=== PATIENT | female | born 1935 | race Hispanic/Latino ===

== ENCOUNTER 2020-03-24 07:52 | Inpatient (IN) | payer OTHER ==
[~2020-03-24] VITALS: Ht 160 cm; Wt 52.3 kg
[~2020-03-24 07:52] MED LIST: METF-444 PO
[2020-03-24 09:42] LABS: BASOPHILS % (AUTO) 0.4 % (0.0-5.0); EOSINOPHILS % (AUTO) 0.1 % (0.0-8.0); HEMATOCRIT 37.7 % (36-48); MEAN CORPUSCULAR HEMOGLOBIN 27.8 pg (27.0-33.0); MEAN CORPUSCULAR HGB CONC 32.6 g/dL (32.0-36.0); MEAN CORPUSCULAR VOLUME 85.1 fL (79-99); MONOCYTES % (AUTO) 11.6 % (3.0-13.0); NEUTROPHILS % (AUTO) 73.9 % (40.0-77.0); PLATELET COUNT (AUTO) 235 K/uL (130-400); RED BLOOD CELL COUNT(AUTO) 4.43 MIL/uL (4.00-5.50); RED CELL DISTRIBUTION WIDTH 13.4 % (11.0-15.5); WHITE BLOOD COUNT (AUTO) 7.3 K/uL (4.8-10.8)
[2020-03-24 09:56] LABS: INR 0.91 (0.85-1.15); PROTHROMBIN TIME 9.9 SEC (9.6-11.6)
[2020-03-24 09:59] LABS: ALBUMIN 2.9 g/dL (3.5-5.0); BILIRUBIN,TOTAL 0.4 mg/dL (0.2-1.0); CREATININE 0.8 mg/dL (0.5-1.5); POTASSIUM 4.3 mmol/L (3.5-5.1); TOTAL PROTEIN, SERUM 6.7 g/dL (6.0-8.3)
[2020-03-24 10:00] LABS: LACTATE DEHYDROGENASE 437 U/L (81-234)
[2020-03-24 10:15] LABS: B-TYPE NATRIURETIC PEPTIDE 31 pg/mL (0-100)
[2020-03-24 10:25] LABS: APPEARANCE,URINE Clear (CLEAR); BILIRUBIN,URINE Negative (NEGATIVE); COLOR,URINE Yellow (YELLOW); GLUCOSE, URINE (UA) Negative (NEGATIVE); KETONES,URINE 15 mg/dL (NEGATIVE); LEUKOCYTE ESTERASE ,URINE Negative (NEGATIVE); NITRATE,URINE Negative (NEGATIVE); OCCULT BLOOD,URINE Negative (NEGATIVE); PROTEIN,URINE Trace mg/dL (NEGATIVE); UROBILINOGEN,URINE 0.2 mg/dL (0.2-1.0)
[2020-03-24 10:30] LABS: BACTERIA,URINE Rare /HPF (None Seen); RBC,URINE 0-1 /HPF (0-1); SQUAMOUS EPITHELIAL CELL,UR Rare /HPF (0-2)
[2020-03-24 11:03] LABS: FERRITIN 391 ng/mL (15-150)
[2020-03-24] MEDS ORDERED: IOHEXOL 350 MG/ML 100ML INFUS..BTL IV ONE (12:03)
[2020-03-24] MEDS ORDERED: NITROGLYCERIN 0.4 MG SL TAB SL PRN (17:45)
[2020-03-24] MEDS ORDERED: ERGOCALCIFEROL (VITAMIN D2) 50,000 UNIT CAPSULE PO ONE (17:45)
[2020-03-24] MEDS ORDERED: LACTULOSE 20 GM/30 ML UDCUP PO PRN (17:45)
[2020-03-24] MEDS ORDERED: MAG HYDROX/AL HYDROX/SIMETH ES 30 ML SUSP UDCUP PO PRN (17:45)
[2020-03-24] MEDS ORDERED: ALBUTEROL SULFATE 0.083% 2.5 MG/3 ML INH IH PRN (17:45)
[2020-03-24] MEDS ORDERED: ONDANSETRON HCL 4 MG/2 ML VIAL IV PRN (17:45)
[2020-03-24] MEDS ORDERED: HYDRALAZINE HCL 20 MG/ML VIAL IV PRN (17:45)
[2020-03-24] MEDS: CEFTRIAXONE SODIUM 1 GM IVP SCH (17:45)
[2020-03-24] MEDS ORDERED: ACETAMINOPHEN 325 MG TAB PO PRN (17:45)
[2020-03-24] MEDS ORDERED: DiphenhydrAMINE HCL 50 MG/ML VIAL IV PRN (17:45)
[2020-03-24] MEDS ORDERED: GLUCAGON 1MG KIT 1 MG ML IM PRN (19:15)
[2020-03-24] MEDS ORDERED: DEXTROSE 50%-WATER 50 ML DISP.SYRIN IV PRN (19:15)
[2020-03-24] MEDS ORDERED: ERGOCALCIFEROL (VITAMIN D2) 50,000 UNIT CAPSULE ONE (20:51)
[2020-03-24] MEDS ORDERED: ENOXAPARIN SODIUM 40 MG/0.4 ML SYRINGE SQ ONE (20:51)
[2020-03-24] MEDS ORDERED: CEFTRIAXONE SODIUM 1 GM ONE (20:51)
[2020-03-24] MEDS ORDERED: DOXYCYCLINE HYCLATE 100 MG TABLET PO ONE (20:51)
[2020-03-24] MEDS ORDERED: DEXAMETHASONE SOD PHOSPHATE 4 MG/ML 1ML VIAL ONE (20:51)
[2020-03-24] MEDS: ENOXAPARIN SODIUM 40 MG/0.4 ML SYRINGE SQ SCH (21:00)
[2020-03-24] MEDS: INSULIN HUMULIN R 100 UNIT/ML 3ML SQ SCH (21:00)
[2020-03-24] MEDS: ACETYLCYSTEINE 600 MG CAPSULE PO SCH (21:00)
[2020-03-24] MEDS: DEXAMETHASONE SOD PHOSPHATE 4 MG/ML 1ML VIAL IVP SCH (21:00)
[2020-03-24] MEDS: DOXYCYCLINE HYCLATE 100 MG TABLET PO SCH (21:00)
[2020-03-25] VITALS (7 sets, daily range): BP systolic 119–142; BP diastolic 56–68
[2020-03-25 04:18] LABS: BASOPHILS % (AUTO) 0.2 % (0.0-5.0); HEMATOCRIT 36.9 % (36-48); LYMPHOCYTES % (AUTO) 10.3 % (21.0-51.0); MEAN CORPUSCULAR HEMOGLOBIN 27.6 pg (27.0-33.0); MEAN CORPUSCULAR HGB CONC 32.5 g/dL (32.0-36.0); NEUTROPHILS % (AUTO) 82.2 % (40.0-77.0); PLATELET COUNT (AUTO) 241 K/uL (130-400); RED BLOOD CELL COUNT(AUTO) 4.34 MIL/uL (4.00-5.50); RED CELL DISTRIBUTION WIDTH 13.5 % (11.0-15.5); WHITE BLOOD COUNT (AUTO) 6.3 K/uL (4.8-10.8)
[2020-03-25 04:28] LABS: HEMOGLOBIN A1C 6.8 % (4.0-6.0)
[2020-03-25 04:46] LABS: ALANINE AMINOTRANSFERASE 27 U/L (12-78); ALBUMIN 2.4 g/dL (3.5-5.0); ASPARTATE AMINOTRANSFERASE 36 U/L (10-37); BILIRUBIN,TOTAL 0.2 mg/dL (0.2-1.0); CARBON DIOXIDE 27 mmol/L (21-32); CHLORIDE 103 mmol/L (101-111); CREATININE 0.8 mg/dL (0.5-1.5); GLOMERULAR FILTR. RATE CALC 73 mL/min (>60); GLUCOSE,RANDOM 212 mg/dL (70-105); LACTATE DEHYDROGENASE 373 U/L (81-234); POTASSIUM 4.5 mmol/L (3.5-5.1); SODIUM SERUM 136 mmol/L (136-145); TOTAL PROTEIN, SERUM 6.5 g/dL (6.0-8.3); UREA NITROGEN, BLOOD 13 mg/dL (7-18)
[2020-03-25] MEDS: CEFTRIAXONE SODIUM 1 GM IVP SCH ×2 (05:43→21:01)
[2020-03-25] MEDS: INSULIN HUMULIN R 100 UNIT/ML 3ML SQ SCH ×4 (05:44→21:04)
[2020-03-25] MEDS: DEXAMETHASONE SOD PHOSPHATE 4 MG/ML 1ML VIAL IVP SCH ×3 (09:27→21:02)
[2020-03-25] MEDS: ASCORBIC ACID 500 MG TAB PO SCH (09:28)
[2020-03-25] MEDS: ZINC SULFATE 220 CAPSULE PO SCH (09:28)
[2020-03-25] MEDS: DOXYCYCLINE HYCLATE 100 MG TABLET PO SCH ×2 (09:28→21:02)
[2020-03-25] MEDS: ACETYLCYSTEINE 600 MG CAPSULE PO SCH ×2 (09:28→21:02)
[2020-03-25] MEDS: ENOXAPARIN SODIUM 40 MG/0.4 ML SYRINGE SQ SCH ×2 (09:29→21:01)
--- NOTE | 2020-03-25 18:05 | NUR ---
NOTE PATIENT REMAINED STABLE THROUGHOUT THE DAY. NO DISTRESS. SHE IS STILL ON O2@3LNC. NO COUGH OR PHLEGM. SOB WITH EXERTION AND WITH CHEST PRESSURE WHEN THAT HAPPENS. SHE TESTED POSITIVE ON RAPID TEST OUTPATIENT. RESULTS FAXED FROM [facility]. PLASMA ORDERED PER DR PRATER BUT STILL WAITING ON CODE FROM [facility] TO RELEASE PLASMA WHEN AVAILABLE.
--- NOTE | 2020-03-25 18:26 | NUR ---
INITIAL SW spoke with daughter in law, Meagan Belcher. Patient lives alone. She used to live with a brother but he on 03/23/2020 after being in hospice. Patient has no home services. DME: hospital bed. Patient is able to complete ADL's and drives. PCP is Dr. Bassam Gil. Pharmacy is [facility]. DCP is home. Addendum: 03/25/20 at 1827 by ANA SAVAGE SS Amended: Links added.
[2020-03-26 03:49] VITALS: BP 142/68
[2020-03-26 05:19] LABS: BASOPHILS % (AUTO) 0.1 % (0.0-5.0); HEMATOCRIT 34.4 % (36-48); LYMPHOCYTES % (AUTO) 8.6 % (21.0-51.0); MEAN CORPUSCULAR HEMOGLOBIN 27.1 pg (27.0-33.0); MEAN CORPUSCULAR HGB CONC 32.3 g/dL (32.0-36.0); MEAN CORPUSCULAR VOLUME 83.9 fL (79-99); MONOCYTES % (AUTO) 7.2 % (3.0-13.0); NEUTROPHILS % (AUTO) 82.7 % (40.0-77.0); PLATELET COUNT (AUTO) 301 K/uL (130-400); RED CELL DISTRIBUTION WIDTH 13.4 % (11.0-15.5); WHITE BLOOD COUNT (AUTO) 13.9 K/uL (4.8-10.8)
[2020-03-26 05:37] LABS: BILIRUBIN,TOTAL 0.2 mg/dL (0.2-1.0); CHLORIDE 105 mmol/L (101-111); SODIUM SERUM 138 mmol/L (136-145)
[2020-03-26 05:45] LABS: ALANINE AMINOTRANSFERASE 22 U/L (12-78); ALBUMIN 2.4 g/dL (3.5-5.0); ASPARTATE AMINOTRANSFERASE 23 U/L (10-37); CARBON DIOXIDE 25 mmol/L (21-32); CREATININE 0.8 mg/dL (0.5-1.5); GLOMERULAR FILTR. RATE CALC 73 mL/min (>60); GLUCOSE,RANDOM 148 mg/dL (70-105); LACTATE DEHYDROGENASE 315 U/L (81-234); POTASSIUM 4.4 mmol/L (3.5-5.1); TOTAL PROTEIN, SERUM 6.2 g/dL (6.0-8.3); UREA NITROGEN, BLOOD 24 mg/dL (7-18)
[2020-03-26] MEDS: DEXAMETHASONE SOD PHOSPHATE 4 MG/ML 1ML VIAL IVP SCH ×3 (05:49→21:30)
[2020-03-26] MEDS: INSULIN HUMULIN R 100 UNIT/ML 3ML SQ SCH ×4 (05:49→21:33)
[2020-03-26 08:00] VITALS: BP 129/66
[2020-03-26] MEDS: ACETYLCYSTEINE 600 MG CAPSULE PO SCH ×2 (08:17→21:29)
[2020-03-26] MEDS: ENOXAPARIN SODIUM 40 MG/0.4 ML SYRINGE SQ SCH ×2 (08:17→21:30)
[2020-03-26] MEDS: ASCORBIC ACID 500 MG TAB PO SCH (08:17)
[2020-03-26] MEDS: DOXYCYCLINE HYCLATE 100 MG TABLET PO SCH ×2 (08:17→21:29)
[2020-03-26] MEDS: ZINC SULFATE 220 CAPSULE PO SCH (08:17)
[2020-03-26] MEDS: CEFTRIAXONE SODIUM 1 GM IVP SCH ×2 (08:17→21:29)
[2020-03-26 12:00] VITALS: BP 132/60
[2020-03-26 16:00] VITALS: BP 115/64
[2020-03-26 21:37] VITALS: BP 134/56
[2020-03-27 01:02] VITALS: BP 136/85
--- NOTE | 2020-03-27 04:39 | NUR ---
PT STABLE THROUGHOUT SHIFTS, VITALS REMAINED WITHIN NORMAL LIMITS, PT CONTINUES TO BE ON 3 LITERS OF OXYGEN. PT SWABBED PER ORDER, MEDS GIVEN PER SCHEDULE.
[2020-03-27 04:49] VITALS: BP 130/82
[2020-03-27] MEDS: INSULIN HUMULIN R 100 UNIT/ML 3ML SQ SCH ×4 (06:14→20:52)
[2020-03-27] MEDS: DEXAMETHASONE SOD PHOSPHATE 4 MG/ML 1ML VIAL IVP SCH ×3 (06:14→20:43)
[2020-03-27 07:02] LABS: BASOPHILS % (AUTO) 0.2 % (0.0-5.0); HEMATOCRIT 36.3 % (36-48); LYMPHOCYTES % (AUTO) 7.3 % (21.0-51.0); MEAN CORPUSCULAR HEMOGLOBIN 27.2 pg (27.0-33.0); MEAN CORPUSCULAR HGB CONC 32.2 g/dL (32.0-36.0); MEAN CORPUSCULAR VOLUME 84.4 fL (79-99); MONOCYTES % (AUTO) 5.6 % (3.0-13.0); NEUTROPHILS % (AUTO) 85.4 % (40.0-77.0); PLATELET COUNT (AUTO) 362 K/uL (130-400); RED CELL DISTRIBUTION WIDTH 13.5 % (11.0-15.5); WHITE BLOOD COUNT (AUTO) 18.9 K/uL (4.8-10.8)
[2020-03-27 07:42] LABS: ALANINE AMINOTRANSFERASE 29 U/L (12-78); ALBUMIN 2.5 g/dL (3.5-5.0); ASPARTATE AMINOTRANSFERASE 30 U/L (10-37); BILIRUBIN,TOTAL 0.3 mg/dL (0.2-1.0); CARBON DIOXIDE 26 mmol/L (21-32); CHLORIDE 108 mmol/L (101-111); CREATININE 0.8 mg/dL (0.5-1.5); GLOMERULAR FILTR. RATE CALC 73 mL/min (>60); GLUCOSE,RANDOM 171 mg/dL (70-105); LACTATE DEHYDROGENASE 303 U/L (81-234); POTASSIUM 4.3 mmol/L (3.5-5.1); SODIUM SERUM 142 mmol/L (136-145); TOTAL PROTEIN, SERUM 6.1 g/dL (6.0-8.3); UREA NITROGEN, BLOOD 27 mg/dL (7-18)
[2020-03-27] MEDS: ACETYLCYSTEINE 600 MG CAPSULE PO SCH ×2 (07:55→20:44)
[2020-03-27] MEDS: ZINC SULFATE 220 CAPSULE PO SCH (07:55)
[2020-03-27] MEDS: ASCORBIC ACID 500 MG TAB PO SCH (07:55)
[2020-03-27] MEDS: CEFTRIAXONE SODIUM 1 GM IVP SCH ×2 (07:55→20:43)
[2020-03-27] MEDS: DOXYCYCLINE HYCLATE 100 MG TABLET PO SCH ×2 (07:55→20:44)
[2020-03-27] MEDS: ENOXAPARIN SODIUM 40 MG/0.4 ML SYRINGE SQ SCH ×2 (07:57→20:45)
[2020-03-27 08:00] VITALS: BP 137/54
[2020-03-27 12:00] VITALS: BP 142/65
--- NOTE | 2020-03-27 12:44 | NUR ---
Pt is sitting on the side of the bed eating lunch. She was asked if she needed anything & her response was nothing. She says that she feels great. Even better than this morning. Her vitals are stable. She is being closely monitored
[2020-03-27 16:00] VITALS: BP 128/70
--- NOTE | 2020-03-27 18:50 | NUR ---
SPOKE WITH RT, AT THIS TIME PT DOES QUALIFY FOR HOME OXYGEN.
[2020-03-27 19:30] VITALS: BP 149/68
[2020-03-28] VITALS: BP 144/57
[2020-03-28 04:00] VITALS: BP 145/69
[2020-03-28] MEDS: INSULIN HUMULIN R 100 UNIT/ML 3ML SQ SCH ×4 (05:53→19:54)
[2020-03-28] MEDS: DEXAMETHASONE SOD PHOSPHATE 4 MG/ML 1ML VIAL IVP SCH ×3 (06:08→19:43)
--- NOTE | 2020-03-28 06:09 | NUR ---
Assessment Patient was just rounded on and she stated that she feels fine. She does not need anything. She has been given her O2 extension which she is super excited about. Vitals are stable & she is being closely monitored.
[2020-03-28 08:00] VITALS: BP 143/68
[2020-03-28] MEDS: ACETYLCYSTEINE 600 MG CAPSULE PO SCH ×2 (08:40→19:43)
[2020-03-28] MEDS: ZINC SULFATE 220 CAPSULE PO SCH (08:40)
[2020-03-28] MEDS: DOXYCYCLINE HYCLATE 100 MG TABLET PO SCH ×2 (08:40→19:43)
[2020-03-28] MEDS: ASCORBIC ACID 500 MG TAB PO SCH (08:40)
[2020-03-28] MEDS: ENOXAPARIN SODIUM 40 MG/0.4 ML SYRINGE SQ SCH ×2 (08:40→19:43)
[2020-03-28] MEDS: CEFTRIAXONE SODIUM 1 GM IVP SCH ×2 (08:40→19:43)
[2020-03-28 11:23] LABS: BASOPHILS % (AUTO) 0.3 % (0.0-5.0); HEMATOCRIT 37.8 % (36-48); LYMPHOCYTES % (AUTO) 6.2 % (21.0-51.0); MEAN CORPUSCULAR HEMOGLOBIN 27.3 pg (27.0-33.0); MEAN CORPUSCULAR VOLUME 85.3 fL (79-99); MONOCYTES % (AUTO) 6.3 % (3.0-13.0); NEUTROPHILS % (AUTO) 83.9 % (40.0-77.0); PLATELET COUNT (AUTO) 379 K/uL (130-400); RED BLOOD CELL COUNT(AUTO) 4.43 MIL/uL (4.00-5.50); RED CELL DISTRIBUTION WIDTH 13.4 % (11.0-15.5); WHITE BLOOD COUNT (AUTO) 16.5 K/uL (4.8-10.8)
[2020-03-28 11:34] LABS: POTASSIUM 4.1 mmol/L (3.5-5.1)
[2020-03-28 12:00] VITALS: BP 144/74
[2020-03-28 16:00] VITALS: BP 148/78
--- NOTE | 2020-03-28 17:42 | NUR ---
RT EVALUATED THE PT GOING TO THE BATHROOM AND BACK CONNECTED TO NC AT 2L AND PT DESATURATES TO 78-80 % O2 SAT WITH SOB. PT WAS PLACE BACK IN BED AND NC WAS INCREASE TO 5 L TO BRING HER BACK TO 89-90% O2 SAT.
[2020-03-28 19:30] VITALS: BP 149/78
[2020-03-29] VITALS (7 sets, daily range): BP systolic 129–150; BP diastolic 62–69
[2020-03-29] MEDS: INSULIN HUMULIN R 100 UNIT/ML 3ML SQ SCH ×4 (06:29→19:59)
[2020-03-29] MEDS: DEXAMETHASONE SOD PHOSPHATE 4 MG/ML 1ML VIAL IVP SCH ×3 (06:29→19:35)
[2020-03-29] MEDS: ASCORBIC ACID 500 MG TAB PO SCH (08:28)
[2020-03-29] MEDS: CEFTRIAXONE SODIUM 1 GM IVP SCH ×2 (08:28→19:34)
[2020-03-29] MEDS: DOXYCYCLINE HYCLATE 100 MG TABLET PO SCH ×2 (08:29→19:34)
[2020-03-29] MEDS: ZINC SULFATE 220 CAPSULE PO SCH (08:29)
[2020-03-29] MEDS: ACETYLCYSTEINE 600 MG CAPSULE PO SCH ×2 (08:29→19:34)
[2020-03-29] MEDS: ENOXAPARIN SODIUM 40 MG/0.4 ML SYRINGE SQ SCH ×2 (08:29→19:35)
[2020-03-29] MEDS: ACETAMINOPHEN 325 MG TAB PO PRN ×2 (21:41→22:42)
[2020-03-30 03:56] VITALS: BP 125/61
--- NOTE | 2020-03-30 04:03 | NUR ---
Morning Assessment Patient is in the bed resting peacefully showing no S/S of distress. Vitals are stable and the patient is being closely monitored.
[2020-03-30] MEDS: DEXAMETHASONE SOD PHOSPHATE 4 MG/ML 1ML VIAL IVP SCH ×3 (05:08→19:31)
[2020-03-30] MEDS: INSULIN HUMULIN R 100 UNIT/ML 3ML SQ SCH ×4 (05:08→21:23)
[2020-03-30] MEDS: ASCORBIC ACID 500 MG TAB PO SCH (08:19)
[2020-03-30] MEDS: ZINC SULFATE 220 CAPSULE PO SCH (08:19)
[2020-03-30] MEDS: ACETYLCYSTEINE 600 MG CAPSULE PO SCH ×2 (08:19→19:31)
[2020-03-30] MEDS: DOXYCYCLINE HYCLATE 100 MG TABLET PO SCH ×2 (08:19→19:31)
[2020-03-30] MEDS: CEFTRIAXONE SODIUM 1 GM IVP SCH ×2 (08:20→19:31)
[2020-03-30] MEDS: ENOXAPARIN SODIUM 40 MG/0.4 ML SYRINGE SQ SCH ×2 (08:21→19:31)
[2020-03-30 09:31] VITALS: BP 149/63
--- NOTE | 2020-03-30 11:22 | NUR ---
pt alert and oriented, 94% on 4L of O2 via nasal canula. remaining assessment within normal limits. Pt denies pain and discomfort this morning. /updated with plan of care, discharge intent on hold due to walking pulse ox eval on 03/29.
[2020-03-30 12:17] VITALS: BP 152/73
[2020-03-30 16:23] VITALS: BP 135/68
[2020-03-30] MEDS: ACETAMINOPHEN 325 MG TAB PO PRN (19:43)
[2020-03-30 21:05] VITALS: BP 142/76
[2020-03-30 23:51] VITALS: BP 121/71
[2020-03-30] MEDS: DIPHENHYDRAMINE HCL 25 MG CAPSULE PO PRN (23:55)
--- NOTE | 2020-03-30 23:59 | NUR ---
Assessment Patient was just rounded on. She has complaints of a little SOB. Her vitals are within normal range (including 02-92% on 4L BNC). She stated that maybe it is a little anxiety because right before bed a family member called and informed her of a loved one recently passing away. She was given a 25mg capsule of benadryl. Her o2 was increased to 5L for support. She is being closely monitored.
[2020-03-31] MEDS: INSULIN HUMULIN R 100 UNIT/ML 3ML SQ SCH ×4 (05:16→20:51)
[2020-03-31] MEDS: DEXAMETHASONE SOD PHOSPHATE 4 MG/ML 1ML VIAL IVP SCH ×3 (05:17→20:41)
[2020-03-31 06:51] VITALS: BP 148/74
[2020-03-31 08:47] VITALS: BP 126/67
[2020-03-31] MEDS: ASCORBIC ACID 500 MG TAB PO SCH (09:49)
[2020-03-31] MEDS: CEFTRIAXONE SODIUM 1 GM IVP SCH (09:49)
[2020-03-31] MEDS: ZINC SULFATE 220 CAPSULE PO SCH (09:49)
[2020-03-31] MEDS: DOXYCYCLINE HYCLATE 100 MG TABLET PO SCH (09:49)
[2020-03-31] MEDS: ACETYLCYSTEINE 600 MG CAPSULE PO SCH ×2 (09:49→20:41)
[2020-03-31] MEDS: ENOXAPARIN SODIUM 40 MG/0.4 ML SYRINGE SQ SCH ×2 (09:50→20:41)
[2020-03-31 11:33] VITALS: BP 129/70
[2020-03-31 16:17] VITALS: BP 126/73
[2020-03-31 17:02] LABS: ABG BASE EXCESS -2.2 mmol/L (-2.0-3.0); ABG HCO3 20.3 mmol/L (21.0-28.0); ABG PCO2 29 mmHg (32-45)
[2020-03-31 20:54] VITALS: BP 143/55
[2020-04-01 01:01] VITALS: BP 137/59
[2020-04-01 03:50] LABS: BASOPHILS % (AUTO) 0.6 % (0.0-5.0); HEMATOCRIT 36.3 % (36-48); LYMPHOCYTES % (AUTO) 8.8 % (21.0-51.0); MEAN CORPUSCULAR HEMOGLOBIN 27.8 pg (27.0-33.0); MEAN CORPUSCULAR HGB CONC 33.3 g/dL (32.0-36.0); MEAN CORPUSCULAR VOLUME 83.3 fL (79-99); MONOCYTES % (AUTO) 6.9 % (3.0-13.0); NEUTROPHILS % (AUTO) 76.8 % (40.0-77.0); PLATELET COUNT (AUTO) 438 K/uL (130-400); RED BLOOD CELL COUNT(AUTO) 4.36 MIL/uL (4.00-5.50); RED CELL DISTRIBUTION WIDTH 13.5 % (11.0-15.5); WHITE BLOOD COUNT (AUTO) 21.5 K/uL (4.8-10.8)
[2020-04-01 05:00] LABS: CREATININE 0.9 mg/dL (0.5-1.5); POTASSIUM 4.7 mmol/L (3.5-5.1)
[2020-04-01] MEDS: INSULIN HUMULIN R 100 UNIT/ML 3ML SQ SCH ×4 (05:22→20:50)
[2020-04-01] MEDS: DEXAMETHASONE SOD PHOSPHATE 4 MG/ML 1ML VIAL IVP SCH ×3 (05:45→19:47)
[2020-04-01 06:25] VITALS: BP 135/62
--- NOTE | 2020-04-01 06:27 | NUR ---
Assessment Patient is in the bed sleeping. She is not showing any S/S of distress. Vitals are stable. She is being closely monitored.
[2020-04-01] MEDS: ZINC SULFATE 220 CAPSULE PO SCH (08:23)
[2020-04-01] MEDS: ACETYLCYSTEINE 600 MG CAPSULE PO SCH ×2 (08:23→19:47)
[2020-04-01] MEDS: ASCORBIC ACID 500 MG TAB PO SCH (08:23)
[2020-04-01] MEDS: ENOXAPARIN SODIUM 40 MG/0.4 ML SYRINGE SQ SCH ×2 (08:24→19:47)
[2020-04-01 08:26] VITALS: BP 126/75
[2020-04-01 11:27] VITALS: BP 146/67
[2020-04-01 16:04] VITALS: BP 123/64
[2020-04-01] MEDS: DIPHENHYDRAMINE HCL 25 MG CAPSULE PO PRN (19:47)
[2020-04-01 20:40] VITALS: BP 126/64
[2020-04-02 00:25] VITALS: BP 121/73
--- NOTE | 2020-04-02 04:33 | NUR ---
Assessment Patient is in the bed resting peacefully. She is not showing any S/S of distress. Vitals are stable & she is being closely monitored.
[2020-04-02] MEDS: DEXAMETHASONE SOD PHOSPHATE 4 MG/ML 1ML VIAL IVP SCH ×3 (05:58→19:41)
[2020-04-02] MEDS: INSULIN HUMULIN R 100 UNIT/ML 3ML SQ SCH ×4 (05:58→20:47)
[2020-04-02 06:13] VITALS: BP 128/37
[2020-04-02 08:11] VITALS: BP 109/61
[2020-04-02] MEDS: ASCORBIC ACID 500 MG TAB PO SCH (08:27)
[2020-04-02] MEDS: ZINC SULFATE 220 CAPSULE PO SCH (08:27)
[2020-04-02] MEDS: ACETYLCYSTEINE 600 MG CAPSULE PO SCH ×2 (08:27→19:40)
[2020-04-02] MEDS: ENOXAPARIN SODIUM 40 MG/0.4 ML SYRINGE SQ SCH ×2 (08:28→19:40)
[2020-04-02 12:04] VITALS: BP 106/72
[2020-04-02 15:52] VITALS: BP 91/67
[2020-04-02] MEDS: DIPHENHYDRAMINE HCL 25 MG CAPSULE PO PRN (19:41)
[2020-04-02 21:13] VITALS: BP 129/67
[2020-04-03 01:07] VITALS: BP 126/60
[2020-04-03] MEDS: INSULIN HUMULIN R 100 UNIT/ML 3ML SQ SCH ×4 (04:39→20:34)
[2020-04-03] MEDS: DEXAMETHASONE SOD PHOSPHATE 4 MG/ML 1ML VIAL IVP SCH ×3 (04:45→19:32)
[2020-04-03 06:30] VITALS: BP 110/47
[2020-04-03 08:42] VITALS: BP_SYST 123; BP_SYST 130; BP_DIAS 47; BP_DIAS 79
[2020-04-03] MEDS: ASCORBIC ACID 500 MG TAB PO SCH (11:19)
[2020-04-03] MEDS: ACETYLCYSTEINE 600 MG CAPSULE PO SCH ×2 (11:19→19:31)
[2020-04-03] MEDS: ZINC SULFATE 220 CAPSULE PO SCH (11:19)
[2020-04-03] MEDS: ENOXAPARIN SODIUM 40 MG/0.4 ML SYRINGE SQ SCH ×2 (11:20→19:32)
[2020-04-03 12:50] VITALS: BP 124/61
--- NOTE | 2020-04-03 13:50 | NUR ---
DISPOSITION TO HOME PER PATIENT /FAMILY WISHES ATTEMPTED TO CALL PT, SON, DAUGHTER IN LAW. LEFT MESSAGE Cherelle OHARA, DAUGHTER IN LAW- CALL RETURNED SPOKE TO HER BRIEFLY- REVIEWED PTX NOTES, SAFE TO AMBULATE- STILL ON 2 LNC, EXPLAINED IF READY TO DISCHARGE WE CAN SUPPLY THE O2 CONCENTRATOR UNITL THE INSURANCE DELIVERS. VERBALIZED UNDERSTANDING, STATES PT MAY BE COMING TO STAY WITH SON/DTR IN LAW. GAVE CELL NUMBER FOR PATIENT. CALL MADE,NO ANSWER, LEFT TEXT. WILL ADVISE CORN PICKER THAT PT WILL NOT BE GOING TO A SNF- CAN WE HAVE A HOME O2 EVAL TODAY? Addendum: 04/03/20 at 1355 by AURA PALOMINO RN Amended: Links added.
[2020-04-03 19:05] VITALS: BP 123/66
[2020-04-03 21:45] VITALS: BP 139/64
[2020-04-04 00:28] VITALS: BP 117/70
[2020-04-04 03:26] LABS: ABG BASE EXCESS -2.3 mmol/L (-2.0-3.0); ABG HCO3 21.1 mmol/L (21.0-28.0); ABG OXYGEN SATURATION 96.5 % (95.0-99.0); ABG PCO2 33 mmHg (32-45)
[2020-04-04 04:10] VITALS: BP 109/47
[2020-04-04] MEDS: DEXAMETHASONE SOD PHOSPHATE 4 MG/ML 1ML VIAL IVP SCH (04:47)
[2020-04-04] MEDS: INSULIN HUMULIN R 100 UNIT/ML 3ML SQ SCH ×2 (05:26→12:21)
[2020-04-04 05:46] LABS: BASOPHILS % (AUTO) 0.3 % (0.0-5.0); HEMATOCRIT 36.3 % (36-48); LYMPHOCYTES % (AUTO) 9.1 % (21.0-51.0); MEAN CORPUSCULAR HEMOGLOBIN 27.9 pg (27.0-33.0); MEAN CORPUSCULAR HGB CONC 33.1 g/dL (32.0-36.0); MEAN CORPUSCULAR VOLUME 84.4 fL (79-99); MONOCYTES % (AUTO) 7.8 % (3.0-13.0); NEUTROPHILS % (AUTO) 78.8 % (40.0-77.0); PLATELET COUNT (AUTO) 411 K/uL (130-400); RED CELL DISTRIBUTION WIDTH 13.7 % (11.0-15.5); WHITE BLOOD COUNT (AUTO) 17.8 K/uL (4.8-10.8)
[2020-04-04 06:10] LABS: ALANINE AMINOTRANSFERASE 53 U/L (12-78); ALBUMIN 2.2 g/dL (3.5-5.0); ASPARTATE AMINOTRANSFERASE 13 U/L (10-37); BILIRUBIN,TOTAL 0.3 mg/dL (0.2-1.0); CARBON DIOXIDE 25 mmol/L (21-32); CHLORIDE 103 mmol/L (101-111); CREATININE 0.9 mg/dL (0.5-1.5); GLOMERULAR FILTR. RATE CALC 63 mL/min (>60); GLUCOSE,RANDOM 215 mg/dL (70-105); LACTATE DEHYDROGENASE 185 U/L (81-234); POTASSIUM 4.3 mmol/L (3.5-5.1); SODIUM SERUM 137 mmol/L (136-145); TOTAL PROTEIN, SERUM 5.5 g/dL (6.0-8.3); UREA NITROGEN, BLOOD 30 mg/dL (7-18)
[2020-04-04 06:26] LABS: CRP QUANTITATIVE < 2.00 mg/L (0.00-9.0)
[2020-04-04 08:10] VITALS: BP 128/59
[2020-04-04] MEDS: ZINC SULFATE 220 CAPSULE PO SCH (08:50)
[2020-04-04] MEDS: ACETYLCYSTEINE 600 MG CAPSULE PO SCH (08:50)
[2020-04-04] MEDS: ASCORBIC ACID 500 MG TAB PO SCH (08:50)
[2020-04-04] MEDS: ENOXAPARIN SODIUM 40 MG/0.4 ML SYRINGE SQ SCH (08:51)
[2020-04-04] MEDS ORDERED: METH4TAB3 PO (11:26)
[2020-04-04] MEDS ORDERED: APIX2.5T PO (11:26)
[2020-04-04 12:51] VITALS: BP 103/65
--- NOTE | 2020-04-04 14:19 | NUR ---
Nutrition Note: RD screened patient due to los x 11. Pt pending discharge this evening. Pt with good oral intake 75-100% of meals. LBM 04/04 Recommend for home d/c: Continue 60gm CCD at home with no concentrated sweets. Continue Zinc & vit C supplementation Add Vit D 1000IU Add glucerna 2 can/day for added protein. Addendum: 04/04/20 at [address] Amended: Links added.
== END 2020-04-04 17:45 | disposition home or self-care (01) | DRG 177 ==
LOC: EDH 07:52 → EDHIP 17:42 → 4AH 03-25 01:36 → 4DH 03-26 04:21
PROVIDERS: ADMIT Family Medicine; ATTEND Family Medicine
DX: U07.1 COVID-19 (principal); J96.01 Acute respiratory failure with hypoxia; J12.89 Other viral pneumonia; D69.6 Thrombocytopenia, unspecified; D72.810 Lymphocytopenia; E11.9 Type 2 diabetes mellitus without complications; R74.0 Nonspecific elevation of levels of transaminase and lactic acid dehydrogenase [LDH]; Z90.710 Acquired absence of both cervix and uterus; Z82.3 Family history of stroke; Z83.3 Family history of diabetes mellitus; Z80.0 Family history of malignant neoplasm of digestive organs; Z84.89 Family history of other specified conditions; Z82.49 Family history of ischemic heart disease and other diseases of the circulatory system
CPT/HCPCS: 36415; 36600; 71045; 71275; 80048; 80053; 81001; 82550; 82728; 82803; 82948; 83036; 83605; 83615; 83880; 84145; 84484; 85025; 85378; 85610; 85730; 86140; 86850; 86900; 86901; 87040; 87804; 93005; 94760; G0378; J0696; J1100; J1650; J1815; Q0163; Q9967; U0003

== ENCOUNTER → 2020-04-20 | Outpatient (CLI) | payer OTHER ==
[~2020-04-20] MED LIST changes: +APIX2.5T PO; +METH4TAB3 PO
== END | disposition home or self-care (01) ==
LOC: OIH 14:32
PROVIDERS: ATTEND Internal Medicine
DX: M47.814 Spondylosis without myelopathy or radiculopathy, thoracic region (principal); J45.909 Unspecified asthma, uncomplicated
CPT/HCPCS: 71046

== ENCOUNTER → 2020-05-24 | Outpatient (CLI) | payer OTHER | END | disposition home or self-care (01) | LOC: RAH 13:41 | PROVIDERS: ATTEND Internal Medicine | DX: J84.10 Pulmonary fibrosis, unspecified (principal); J45.909 Unspecified asthma, uncomplicated; M47.814 Spondylosis without myelopathy or radiculopathy, thoracic region | CPT/HCPCS: 71046 ==